=== PATIENT | female | born 1990 | race Caucasian/White ===

== ENCOUNTER 2018-06-08 15:30 | Inpatient (IN) | payer OTHER ==
[~2018-06-08] VITALS: Ht 154.9 cm; Wt 55.3 kg
[2018-06-08] MEDS ORDERED: PRILOSEC10 MG (15:46)
[2018-06-13] MEDS ORDERED: INTEGRA PLUS C1 EACH PO (08:45)
[2018-06-17] MEDS ORDERED: DELZICOL400 M1 PO (08:25)
[2018-06-17] MEDS ORDERED: PREDNISONE20 MG PO (08:25)
== END 2018-06-17 20:14 | disposition home or self-care (01) | DRG 386 ==
LOC: ER 15:30 → MEDJ 22:09 → EDBD 22:09 → MEDJ 06-17 20:14
PROC: 30233N1 Transfusion of Nonautologous Red Blood Cells into Peripheral Vein, Percutaneous Approach (ICD-10-PCS; 2018-06-08)
PROC: BW21Y0Z Computerized Tomography (CT Scan) of Abdomen and Pelvis using Other Contrast, Unenhanced and Enhanced (ICD-10-PCS; 2018-06-08)
PROC: 0DBQ8ZX Excision of Anus, Via Natural or Artificial Opening Endoscopic, Diagnostic (ICD-10-PCS; principal; 2018-06-12)
PROC: 0DBM8ZX Excision of Descending Colon, Via Natural or Artificial Opening Endoscopic, Diagnostic (ICD-10-PCS; 2018-06-12)
DX: K51.211 Ulcerative (chronic) proctitis with rectal bleeding (principal); D62 Acute posthemorrhagic anemia; K64.2 Third degree hemorrhoids

== ENCOUNTER 2018-11-01 08:30 | Day surgery (SDC) | payer OTHER ==
[~2018-11-01 08:30] MED LIST: DELZICOL400 M1 PO; INTEGRA PLUS C1 EACH PO; PREDNISONE20 MG PO; PRILOSEC10 MG
== END 2018-11-01 18:50 | disposition home or self-care (01) ==
LOC: AMB-ENDOS 08:30
DX: K52.89 Other specified noninfective gastroenteritis and colitis (principal); K64.1 Second degree hemorrhoids

== ENCOUNTER → 2020-02-27 08:00 | Outpatient (CLI) | payer OTHER | END | disposition home or self-care (01) | LOC: LAB 08:00 → ADM 03-01 13:00 → AMB-ENDOS 03-05 13:00 → EDSTATUS 03-05 13:00 → ADM 03-05 13:00 | PROVIDERS: ATTEND Colon & Rectal Surgery | DX: K92.1 Melena (principal); K92.2 Gastrointestinal hemorrhage, unspecified; K64.2 Third degree hemorrhoids; K60.0 Acute anal fissure; K51.811 Other ulcerative colitis with rectal bleeding; Z03.818 Encounter for observation for suspected exposure to other biological agents ruled out ==

== ENCOUNTER 2020-12-17 10:01 | Day surgery (SDC) | payer OTHER | END 2020-12-17 16:35 | disposition home or self-care (01) | LOC: AMB-ENDOS 10:01 | PROVIDERS: ATTEND Colon & Rectal Surgery | DX: D12.8 Benign neoplasm of rectum (principal); K52.89 Other specified noninfective gastroenteritis and colitis; K64.1 Second degree hemorrhoids; Z20.822 Contact with and (suspected) exposure to COVID-19 ==

== ENCOUNTER 2021-02-07 16:05 | Emergency (ER) | payer OTHER ==
[~2021-02-07] VITALS: Ht 154.9 cm; Wt 65.8 kg
[2021-02-08] MEDS ORDERED: CIPRO500 MG PO (00:38)
== END 2021-02-08 01:36 | disposition home or self-care (01) ==
LOC: ER 16:05
DX: B34.9 Viral infection, unspecified (principal); N39.0 Urinary tract infection, site not specified

== ENCOUNTER 2021-06-29 14:40 | Emergency (ER) | payer OTHER ==
[~2021-06-29] VITALS: Ht 154.9 cm; Wt 68.9 kg
[~2021-06-29 14:40] MED LIST changes: +CIPRO500 MG PO
[2021-06-29] MEDS ORDERED: OSEL75CA PO (17:52)
== END 2021-06-29 19:16 | disposition home or self-care (01) ==
LOC: ER 14:40
DX: J11.1 Influenza due to unidentified influenza virus with other respiratory manifestations (principal); B34.9 Viral infection, unspecified; E86.0 Dehydration; Z11.52 Encounter for screening for COVID-19

== ENCOUNTER 2021-12-07 14:50 | Emergency (ER) | payer OTHER ==
[~2021-12-07] VITALS: Ht 154.9 cm; Wt 71.7 kg
[~2021-12-07 14:50] MED LIST changes: +OSEL75CA PO
[2021-12-07] MEDS ORDERED: TUSNEL LIQUID178 ML PO (18:34)
[2021-12-07] MEDS ORDERED: ZITHROMAX500 MG PO (18:34)
== END 2021-12-07 19:20 | disposition home or self-care (01) ==
LOC: ER 14:50
DX: A49.3 Mycoplasma infection, unspecified site (principal); B34.9 Viral infection, unspecified; Z20.822 Contact with and (suspected) exposure to COVID-19; R53.81 Other malaise; Z88.5 Allergy status to narcotic agent

== ENCOUNTER 2022-11-01 18:39 | Emergency (ER) | payer OTHER ==
[~2022-11-01] VITALS: Ht 154.9 cm; Wt 68.0 kg
[~2022-11-01 18:39] MED LIST changes: +TUSNEL LIQUID178 ML PO; +ZITHROMAX500 MG PO
== END 2022-11-01 22:51 | disposition home or self-care (01) ==
LOC: ER 18:39
DX: J06.9 Acute upper respiratory infection, unspecified (principal); Z88.8 Allergy status to other drugs, medicaments and biological substances

== ENCOUNTER 2022-12-24 14:04 | Emergency (ER) | payer OTHER ==
[~2022-12-24] VITALS: Ht 154.9 cm; Wt 70.3 kg
[2022-12-24] MEDS ORDERED: OSEL75CA PO (16:18)
== END 2022-12-24 16:26 | disposition home or self-care (01) ==
LOC: ER 14:04
DX: J10.1 Influenza due to other identified influenza virus with other respiratory manifestations (principal); B34.9 Viral infection, unspecified; Z88.5 Allergy status to narcotic agent; Z20.822 Contact with and (suspected) exposure to COVID-19

== ENCOUNTER 2023-09-08 17:38 | Emergency (ER) | payer OTHER ==
[~2023-09-08] VITALS: Ht 154.9 cm; Wt 72.6 kg
[2023-09-08] MEDS ORDERED: HYOSCYAMINE SULFATE 0.125 MG TAB.SUBL SL ONE (19:30)
[2023-09-08] MEDS ORDERED: FAMOtidine 10 MG/ML (4ML VIAL) IV PUSH ONE (19:30)
[2023-09-08] MEDS ORDERED: 0.9 % SODIUM CHLORIDE 1,000 ML IV ONE (19:30)
[2023-09-08] MEDS ORDERED: ONDANSETRON HCL 2 MG/ML VIAL IV ONE (19:30)
[2023-09-08 20:11] LABS: HEMATOCRIT 40.5 % (36.0-45.00); HEMOGLOBIN 13.3 g/dL (12.0-15.00); MEAN CELL VOLUME 80.1 fL (80.00-100.00); MEAN CORPUSCULAR HEMOGLOBIN 26.2 pg (27.00-32.0); MEAN CORPUSCULAR HGB CONC 32.7 g/dl (32.0-36.0); PLATELET COUNT 404 K/uL (150-450); RED BLOOD COUNT 5.06 M/uL (4.00-6.00); RED CELL DISTRIBUTION WIDTH 14.4 % (11.5-14.5)
[2023-09-08 20:47] LABS: PH,URINE 5.5 (5.0-8.0); URINE APPEARANCE Clear; URINE BILIRRUBIN Negative (NEGATIVE); URINE BLOOD Negative; URINE COLOR Yellow; URINE GLUCOSE Negative (NEGATIVE); URINE LEUKOCYTE Negative; URINE NITRATE Negative; URINE PROTEIN Negative (NEGATIVE); URINE UROBILINOGEN 0.2 E.U./dl
[2023-09-08 20:50] LABS: URINE BACTERIA 79.3 uL (0.0-1933); URINE WBC 2.1 uL (0.0-23.2)
[2023-09-08 20:54] LABS: URINE RBC 0.1 uL (0.0-20.8)
[2023-09-08 20:54] LABS: ALBUMIN 3.9 gm/dL (3.4-5.0); BILIRUBIN TOTAL 0.29 mg/dL (0.3-1.2); CALCIUM 9.7 mg/dL (8.5-10.1); CREATININE SERUM 0.78 mg/dL (0.55-1.02); GFR 85.05; GLOBULINA 4.7 G/DL (2.4-3.5); POTASSIUM 3.72 mEq/L (3.5-5.1); TOTAL PROTEIN 8.6 gm/dL (6.4-8.2)
== END 2023-09-08 22:01 | disposition home or self-care (01) ==
LOC: ER 17:39
PROVIDERS: General Practice
DX: A05.9 Bacterial foodborne intoxication, unspecified (principal); R10.9 Unspecified abdominal pain; Z20.822 Contact with and (suspected) exposure to COVID-19; Z88.5 Allergy status to narcotic agent